=== PATIENT | female | born 1955 | race Asian ===

== ENCOUNTER 2020-04-06 16:52 | Inpatient (IN) | payer OTHER ==
[2020-04-06] MEDS ORDERED: SODIUM CHLORIDE 1,000 ML IV SCH (17:15)
[2020-04-06 17:51] LABS: EOS % 1.4 % (0-4.5); HEMATOCRIT 40.9 % (32.4-45.2); HEMOGLOBIN 13.8 GM/dl (10.7-15.3); LYMPH % 33.9 % (8-40); MCH 30.1 pg (25.7-33.7); MCHC 33.7 g/dl (32.0-36.0); MEAN CELL VOLUME 89.3 fl (80-96); MEAN PLT VOLUME 7.1 fl (7.5-11.1); MONO % 8.4 % (3.8-10.2); NEUT % 54.3 % (42.8-82.8); PLATELET COUNT 754 K/MM3 (134-434); RBC 4.59 M/mm3 (3.60-5.2); RDW 13.6 % (11.6-15.6); WHITE BLOOD COUNT 6.1 K/mm3 (4.0-10.8)
[2020-04-06 17:55] LABS: ADD RBC MORPHOLOGY YES
[2020-04-06 18:04] LABS: ALBUMIN 4.2 g/dl (3.4-5.0); BILIRUBIN,TOTAL 0.8 mg/dl (0.2-1); CALCIUM 9.1 mg/dl (8.5-10); CREATININE 0.6 mg/dl (0.55-1.3); TOT PROT 7.7 g/dl (6.4-8.2)
[2020-04-06 18:08] LABS: INR 1.02 (0.82-1.09); PROTHROMBIN TIME (PATIENT) 11.4 SEC (10.2-13.0)
[2020-04-06 18:26] LABS: CHOLESTEROL 245 mg/dl (50-200); HDL CHOLESTEROL 87 mg/dl (40-60); LDL CHOLESTEROL (ONLY SJRH) 146 mg/dL (5-100); TRIGLYCERIDES 59 mg/dl (0-150)
[2020-04-06] MEDS ORDERED: ASPIRIN 325 MG TABLET PO ONE (19:07)
[2020-04-06] MEDS ORDERED: ASPIRIN COATED 81 MG TABLET.EC ONE (19:19)
[2020-04-06 21:04] LABS: ANISOCYTOSIS 1+; PLATELET ESTIMATE INCREASED
[2020-04-06] MEDS ORDERED: ATORVASTATIN CA 10 MG TABLET (FP) PO SCH (22:00)
[2020-04-06] MEDS ORDERED: ATORVASTATIN CA 20 MG TABLET (FP) ONE (22:23)
[2020-04-07 02:23] VITALS: BMI 22.5
[2020-04-07 08:19] LABS: ALBUMIN 3.3 g/dl (3.4-5.0); BASO % 3.4 % (0-2.0); BILIRUBIN,TOTAL 0.8 mg/dl (0.2-1); CREATININE 0.7 mg/dl (0.55-1.3); EOS % 2.4 % (0-4.5); HEMATOCRIT 37.8 % (32.4-45.2); HEMOGLOBIN 12.1 GM/dl (10.7-15.3); LYMPH % 41.3 % (8-40); MCH 28.4 pg (25.7-33.7); MCHC 32.1 g/dl (32.0-36.0); MEAN CELL VOLUME 88.5 fl (80-96); MEAN PLT VOLUME 6.9 fl (7.5-11.1); MONO % 8.7 % (3.8-10.2); NEUT % 44.2 % (42.8-82.8); PLATELET COUNT 686 K/MM3 (134-434); POTASSIUM 4.6 mmol/L (3.5-5.1); RBC 4.28 M/mm3 (3.60-5.2); RDW 13.6 % (11.6-15.6); TOT PROT 6.2 g/dl (6.4-8.2)
[2020-04-07] MEDS ORDERED: ENOXAPARIN NA (PORCINE) 40 MG/0.4 ML DISP.SYRIN SQ SCH (10:00)
[2020-04-07] MEDS ORDERED: ASPIRIN COATED 81 MG TABLET.EC PO SCH (10:00)
[2020-04-07 15:23] VITALS: BP 103/68; PULSE 66; TEMP 98
== END 2020-04-07 15:23 | disposition home or self-care (01) | DRG 74 ==
LOC: FER 16:52 → FM/S 17:48 → UNDOADMIN 04-07 01:08 → FM/S 04-07 01:08 → UNDODISIN 04-07 15:23
PROVIDERS: ADMIT Internal Medicine; ATTEND Nurse Practitioner Family
DX: G51.0 Bell's palsy (principal); D47.3 Essential (hemorrhagic) thrombocythemia; E78.00 Pure hypercholesterolemia, unspecified
CPT/HCPCS: 36415; 70450-TC; 70551-TC; 80053; 80061; 81003; 81015; 82550; 83721; 84443; 84484; 85025; 85610; 85730; 86618; 86850; 86900; 86901; 93005; 93880-TC; 99285-25; C9803; U0003

== ENCOUNTER 2020-08-22 07:54 | Day surgery (SDC) | payer OTHER ==
[2020-08-21 09:03] VITALS: BMI 22.3
[2020-08-22] MEDS ORDERED: PROPOFOL 20 ML ONE ×2 (09:16)
[2020-08-22 10:24] VITALS: BP 108/62; PULSE 64; TEMP 98.1
== END 2020-08-22 10:35 | disposition home or self-care (01) ==
LOC: FASU-ENDO 07:54
PROVIDERS: ATTEND Internal Medicine Gastroenterology
PROC: 0DJD8ZZ Inspection of Lower Intestinal Tract, Via Natural or Artificial Opening Endoscopic (ICD-10-PCS; principal; 2020-08-22 09:26)
DX: Z12.11 Encounter for screening for malignant neoplasm of colon (principal); Z83.71 Family history of colonic polyps; K64.1 Second degree hemorrhoids